=== PATIENT | male | born 1965 | race Caucasian/White ===

== ENCOUNTER 2021-01-25 11:55 | Inpatient (IN) | payer BC ==
[~2021-01-25] VITALS: Ht 180.3 cm; Wt 103.0 kg
--- NOTE | 2021-01-25 12:20 | NUR ---
CAME IN FOR MID CHEST PAIN STARTED YESTERDAY RADIATING TO BACK 6/10 DULL AGGREVATED BY DEEP BREATHING AND COUGHING. PT REPORT HAVING COUGH. PT NOTED DYSPNEIC AND SATTING # 94% ON RA. EKG DONE AT BEDSIDE. PLACED ON MONITOR. IV LINE STARTED AND BLOOD DRAWN. AWAITING MD CALLOWAY
[2021-01-25 12:47] LABS: BASOPHILS # (AUTO) 0.1 /CMM (0.0-0.2); BASOPHILS % (AUTO) 0.3 % (0.0-2.0); HEMATOCRIT 40 % (39-51); HEMOGLOBIN 13.5 g/dL (13.5-17.5); LYMPHOCYTES # (AUTO) 1.7 /CMM (0.8-4.8); MEAN CORPUSCULAR HGB CONC 34 g/dl (31.0-36.0); MEAN CORPUSCULAR VOLUME 94 fL (80-96); MONOCYTES # (AUTO) 0.9 /CMM (0.1-1.30); MONOCYTES % (AUTO) 5.4 % (2.0-12.0); NEUTROPHILS # (AUTO) 14.3 /CMM (1.8-8.9); NEUTROPHILS % (AUTO) 84.3 % (43.0-81.0); PLATELET COUNT (AUTO) 200 /CMM (150-450); RED BLOOD CELL COUNT(AUTO) 4.27 MIL/uL (4.5-6.0)
--- NOTE | 2021-01-25 12:51 | NUR ---
PT NOTED SATTING AT 90% ON RA. PLACED ON 02 VUA NC @ 5LPM SATTING @ 96%. PT VERBALIZED THAT THE O2 HELPS
[2021-01-25 12:57] LABS: CALCIUM, SERUM 9.2 mg/dL (8.5-10.1); CARBON DIOXIDE 24 mmol/L (21-32); CHLORIDE 101 mmol/L (98-107); CREATININE 0.9 mg/dL (0.6-1.3); GLUCOSE 116 mg/dL (74-106); POTASSIUM 3.6 mmol/L (3.5-5.1); SODIUM SERUM 137 mmol/L (136-145); UREA NITROGEN, BLOOD 9 mg/dL (7-18)
[2021-01-25] MEDS ORDERED: IV NS 0.9% 250 ML IV ONE (13:29)
[2021-01-25] MEDS ORDERED: IOHEXOL-350 100 ML VIAL IV ONE (13:29)
--- NOTE | 2021-01-25 13:55 | NUR ---
BACK FROM RADIOLOGY
[2021-01-25] MEDS ORDERED: CEFTRIAXONE 1GM BAG (ER ONLY) 50 ML IV ONE (14:30)
[2021-01-25] MEDS ORDERED: AZITHROMYCIN 500 MG in IV D5W 250 ML IV ONE (14:30)
[2021-01-25] MEDS ORDERED: OMEP20CA15 PO (14:36)
[2021-01-25 14:45] LABS: ALBUMIN 3.8 g/dL (3.4-5.0); BILIRUBIN,DIRECT 0.4 mg/dL (0.0-0.2); BILIRUBIN,TOTAL 0.9 mg/dL (0.2-1.0)
--- NOTE | 2021-01-25 14:49 | NUR ---
PHLEB AT BEDSIDE FOR BLOOD CULTURE DRAW
--- NOTE | 2021-01-25 14:55 | NUR ---
[facility] PAGED
--- NOTE | 2021-01-25 15:18 | NUR ---
COVID SWAB DONE AND SENT TO LAB
[2021-01-25] MEDS ORDERED: ONDANSETRON HCL/PF 4 MG/2 ML VIAL IVP PRN (16:00)
[2021-01-25] MEDS ORDERED: IPRATROPIUM BROMIDE 14 GM INHALER (or 12.9 GM) IH PRN (16:00)
[2021-01-25] MEDS ORDERED: MAG HYDROX/AL HYDROX/SIMETH 30 ML UDC PO PRN (16:00)
[2021-01-25] MEDS ORDERED: MAGNESIUM HYDROXIDE 30 ML UDC PO PRN (16:00)
[2021-01-25] MEDS ORDERED: Z GUARD REMEDY 2 OZ OINT TP PRN (16:00)
[2021-01-25] MEDS ORDERED: ALBUTEROL SULFATE INH 18 GM HFA.AER.AD IH PRN (16:00)
[2021-01-25 17:00] VITALS: BP 143/85
--- NOTE | 2021-01-25 17:23 | NUR ---
REPORT GIVEN TO FLORENCIO TO FOR TALIA
--- NOTE | 2021-01-25 17:30 | NUR ---
TELE/RN NOTES RECEIVED PATIENT AWAKE ALERT ORIENTED X3. ABLE TO MAKE NEEDS KNOWN. A TRANSFER FROM ER. REPORT GIVEN BY MICHELLE MATIAS. PATIENT IS ON OXYGEN AT 5 LPM VIA NASAL CANNULA. ABLE TO WALK FROM [facility] TO BED WITHOUT DIFFICULTY. NO DISTRESS NOTED AT THIS TIME. SKIN IS INTACT. ORIENTED PATIENT TO THE UNIT, COOPERATIVE AND VERBALIZED UNDERSTANDING. SAFETY PRECAUTIONS IN PLACED. BED LOCKED ON LOWEST POSITION, SIDE RAILS UP X2, CALL LIGHT AND TABLE WITHIN REACH. WILL CONTINUE TO MONITOR PATIENT.
--- NOTE | 2021-01-25 17:30 | NUR ---
DR. HAM AT BEDSIDE
--- NOTE | 2021-01-25 17:48 | NUR ---
pt ransported to unit on gurney with emt and rn at bedside w/ acls protocol. nad noted during transport. pt ambulated from gurney to bed w/o assist
[2021-01-25] MEDS ORDERED: IPRATROPIUM NEB FS 0.5 MG/2.5 ML AMPUL.NEB NEB PRN (18:00)
[2021-01-25] MEDS ORDERED: ALBUTEROL FS 2.5 MG/0.5 ML VIAL.NEB NEB PRN (18:00)
[2021-01-25] MEDS ORDERED: ENOXAPARIN SODIUM 40 MG/0.4 ML DISP.SYRIN SQ SCH (18:00)
[2021-01-25] MEDS ORDERED: ENOXAPARIN SODIUM 60 MG/0.6 ML DISP.SYRIN SQ ONE (18:30)
[2021-01-25] MEDS: methylPREDNISolone SOD SUCC 40 MG/ML VIAL IV SCH ×2 (18:38→22:44)
[2021-01-25] MEDS: ACETAMINOPHEN 325 MG TABLET PO PRN (18:39)
--- NOTE | 2021-01-25 19:15 | NUR ---
TELE/RN NOTES PATIENT IN BED AWAKE ALERT ORIENTED X3. ABLE TO MAKE NEEDS KNOWN. ON 5 LPM OF OXYGEN VIA NASAL CANNULA. NO DISTRESS NOTED AT THIS TIME. SKIN IS INTACT. IV ACCESS ON RIGHT AC G#18 PATENT AND INTACT ON SALINE FLUSH. SAFETY PRECAUTIONS IN PLACED. BED LOCKED ON LOWEST POSITION, SIDE RAILS UP X2, CALL LIGHT AND TABLE WITHIN REACH. WILL ENDORSE TO THE NEXT SHIFT FOR CONTINUITY OF CARE..
[2021-01-25 19:31] LABS: ABG BASE EXCESS -3.4 mmol/L; ABG OXYGEN SATURATION 92.1 % (92.0-98.5); ABG PCO2 26.7 mmHg (35.0-45.0); ABG PH 7.466 (7.350-7.450); AaDO2 195.5 mmHg; COHb 1.2 % (0.5-1.5); MetHb 0.1 % (0.0-1.5); O2Hb 90.9 % (94.0-97.0); SITE, ABG Right Radial; VENT MODE, BG N/C 40%
--- NOTE | 2021-01-25 19:45 | NUR ---
HEAT SEAL OPERATOR OPENING NOTE PATIENT A/OX4; ABLE TO MAKE NEEDS KNOWN. O2 ON 5L VIA N/C WITH SOB AND SATTING AT 96%. EXTERNAL FABRICATOR ASSEMBLER MET[employer]ODUCTS READS NSR AT 87. TEMP AT 99.0. RAC #18G S/L; PATENT AND INTACT. SAFETY MEASURES IN PLACE: BED IN LOWEST LOCKED POSITION; SIDE RAILS UPX2, CALL LIGHT WITHIN EASY REACH, BED ALARMS ON. WILL CONTINUE PLAN OF CARE.
--- NOTE | 2021-01-25 19:47 | NUR ---
ASPHALT PAVING SUPERINTENDENT NOTE - ABG ABG RESULT WITH CO2 - 26.7. O2 - 59.0 PH - 7.466 HCO3 - 18.8 RT INCREASE O2 TO 8L VIA SIMPLE MASK. NOTIFIED DR. CORDOVA AND AWAITING FOR FURTHER ORDERS
--- NOTE | 2021-01-25 19:51 | NUR ---
PRELIMINARY FINDINGS SHOWED POSITIVE FOR DVT AT RT POP V. INFORMED FLORENCIO SERNA OF RESULTS.
--- NOTE | 2021-01-25 19:51 | NUR ---
PACKING AND FINAL ASSEMBLY SUPERVISOR NOTE - DVT US DUPLEX VENOUS TO EXT. BLE DONE. PATIENT POSITIVE FOR DVT ON RIGHT POPLITEAL VEIN. NOTIFIED DR. CORDOVA AND AWAITING FOR FURTHER ORDERS.
[2021-01-25 20:04] VITALS: BP 128/78
[2021-01-26 00:20] VITALS: BP 122/79
[2021-01-26] MEDS ORDERED: SODIUM BICARBONATE SYR 50 MEQ/50 ML DISP.SYRIN ONE (01:55)
[2021-01-26] MEDS: Sodium Bicarbonate 50 MEQ in IV D5 / 0.2% NACL 1,000 ML IV PRN ×2 (02:23→22:29)
--- NOTE | 2021-01-26 02:45 | NUR ---
RN NOTES: DR JOSEPH ORDERED SODIUM BICARB 50 MEQ INCORPORATE AT D5 1/2 NSS 1000ML INFUSE AT 45ML/HR GIVEN AT 0235
[2021-01-26 04:38] VITALS: BP 126/75
[2021-01-26 04:41] VITALS: BP 126/75
[2021-01-26] MEDS: methylPREDNISolone SOD SUCC 40 MG/ML VIAL IV SCH ×3 (05:42→20:05)
[2021-01-26 06:16] LABS: BASOPHILS % (AUTO) 0.2 % (0.0-2.0); HEMATOCRIT 37 % (39-51); HEMOGLOBIN 12.6 g/dL (13.5-17.5); LYMPHOCYTES % (AUTO) 5.5 % (20.0-44.0); MEAN CORPUSCULAR HGB CONC 34 g/dl (31.0-36.0); MEAN CORPUSCULAR VOLUME 94 fL (80-96); MONOCYTES # (AUTO) 0.6 /CMM (0.1-1.30); MONOCYTES % (AUTO) 3.3 % (2.0-12.0); NEUTROPHILS # (AUTO) 16.7 /CMM (1.8-8.9); PLATELET COUNT (AUTO) 184 /CMM (150-450); RED BLOOD CELL COUNT(AUTO) 3.94 MIL/uL (4.5-6.0); WHITE BLOOD COUNT (AUTO) 18.4 K/uL (4.3-11.0)
[2021-01-26] MEDS ORDERED: Sodium Bicarbonate 50 MEQ in IV D5 / 0.2% NACL 1,000 ML IV SCH (06:36)
[2021-01-26 07:16] LABS: ALBUMIN 3.2 g/dL (3.4-5.0); BILIRUBIN,TOTAL 0.6 mg/dL (0.2-1.0); CALCIUM, SERUM 9.4 mg/dL (8.5-10.1); CREATININE 0.8 mg/dL (0.6-1.3); MAGNESIUM 1.7 mg/dL (1.8-2.4); PHOSPHORUS 2.2 mg/dL (2.5-4.9); POTASSIUM 4.3 mmol/L (3.5-5.1); TOTAL PROTEIN, SERUM 7.6 g/dL (6.4-8.2)
[2021-01-26 07:19] LABS: THYROID STIMULATING HORMONE 0.736 uIU/mL (0.358-3.74)
--- NOTE | 2021-01-26 07:30 | NUR ---
THIRD GRADE TEACHER NOTES PT IN BED, AWAKE, ALERT AND ORIENTED, DENIES PAIN, NOT IN DISTRESS, ON 8L OF O2 VIA MASK, O2 SAT OF 94%, CALL LIGHT WITHIN REACH, IV FLUIDS INFUSING WELL, NEEDS ATTENDED.
--- NOTE | 2021-01-26 07:35 | NUR ---
POWER GENERATING PLANT OPERATOR OPENING NOTES: PATIENT AWAKE IN BED, BED IN LOW POSITION , NO SOB NOTED,NO COMPLAIN OF PAIN AND DISCOMFORT, ON TELE MONITORING WITH READING OF PVC WITH HR-71, ON O2 SAT MONITORING , ALL NEEDS MET KEPT CLEAN AND ENDORSE TO INCOMING SHIFT.
[2021-01-26 08:00] VITALS: BP 117/78
[2021-01-26] MEDS: ENOXAPARIN SODIUM 100 MG/ML DISP.SYRIN SQ SCH ×2 (08:06→20:08)
[2021-01-26] MEDS: OSELTAMIVIR PHOSPHATE 75 MG CAPSULE PO SCH ×2 (09:47→17:11)
[2021-01-26] MEDS ORDERED: K PHOS NEUTRAL 250 MG TABLET PO ONE (10:30)
--- NOTE | 2021-01-26 10:30 | NUR ---
RECEIVED PATIENT FROM . PATIENT STABLE. WILL CONTINUE TO MONITOR.
--- NOTE | 2021-01-26 10:53 | NUR ---
INSIDE SALES TRAINER NOTES PT SEEN BY DR. STANTON, PLAN OF CARE DISCUSSED WITH PT AND AT BEDSIDE, PT ALSO SEEN BY DR. TSE, ORDERED TO TRANSFER PT TO 1ST FLOOR FOR ISOLATION PRECAUTIONS, OBTAINED SWABS FOR COVID PCR AND RAPID INFLUENZA, SPECIMENS SENT TO LAB, RECEIVED BY ZULEIKA, TRANSFERED PT TO ROOM 110 VIA ACLS PROTOCOL, PORTABLE O2 AND BELONGINGS, REPORT GIVEN TO KARUNA RN FOR CONTINUITY OF CARE.
[2021-01-26] MEDS: Magnesium 1GM/D5W 100ML PREMIX 100 ML IV SCH ×2 (11:02→12:31)
[2021-01-26] MEDS: CEFTRIAXONE 2 G in IV D5W 100 ML IV SCH (16:59)
[2021-01-26] MEDS: AZITHROMYCIN 500 MG in IV D5W 250 ML IV SCH (17:44)
--- NOTE | 2021-01-26 19:26 | NUR ---
VERIFICATION REP CLOSING NOTE PATIENT CURRENTLY LYING IN BED, AWAKE, A/OX4. ON 8L O2 VIA MASK WITH SOB, SATURATION AT 97%. EXTERNAL BONE CRUSHER READS NSR AT 87. IV ACCESS TO RIGHT AC #18G S/L - PATENT AND INTACT. PATIENT IS AMBULATORY. SAFETY MEASURES IN PLACE. CALL LIGHT WITHIN REACH. REPORT GIVEN TO POT LINING SUPERVISOR NURSE FOR TALIA.
--- NOTE | 2021-01-26 19:50 | NUR ---
RN OPENING NOTE REC'D PT IN BED, A/O X4 PREFERS TO GO BY OCTAVIANO, MIDDLE NAME. PT IS ON 8L OF O2 VIA SIMPLE MASK NO SOB OR RESP DISTRESS NOTED. O2 SAT 95%. PT IS NSR 87, PT BASELINE. PT IS AMBULATORY WITH STEADY GAIT. IV SITE RIGHT AC FLUSHED ASEPTICALLY. IVF D5 1/4 NS WITH SODIUM BICARB RUNNING AT 45ML/HR ORDERED. NO S/S OF INFILTRATION NOTED. PT DENIES PAIN. ISOLATION PRECAUTIONS IN PLACE FOR PCR PENDING. SIDE RAILS UP X2 BED LOCKED IN LOWEST POSITION WITH BED ALARM NEWS INTERN LIGHT WITHIN REACH. WILL CONT TO MONITOR CLOSELY THROUGHOUT SHIFT.
[2021-01-26 20:00] VITALS: BP 121/75
[2021-01-27] VITALS: BP 127/81
[2021-01-27 04:00] VITALS: BP 126/79
[2021-01-27] MEDS: methylPREDNISolone SOD SUCC 40 MG/ML VIAL IV SCH ×3 (05:11→21:59)
--- NOTE | 2021-01-27 06:52 | NUR ---
RN CLOSING NOTE NO SIGNIFICANT CHANGES IN PT CONDITION PT REMAINS ON 8L OF O2 VIA SIMPLE MASK. NO SOB OR RESP DISTRESS NOTED. O2 SAT 95%. PT IS NSR IWTH HR 79. ALL NEEDS ATTENDED. ALL DUE MEDICATIONS GIVEN. PT DENIES PAIN. SAFETY MEASURES IN PLACE. ISOLATION PRECAUTIONS IN PLACE FOR PCR PENDING. SIDE RAILS UP X2 BED LOCKED IN LOWEST POSITION WITH BED ALARM SALESPERSON NECKTIES LIGHT WITHIN REACH. WILL ENDORSE TO DAY SHIFT NURSE FOR CONTINUATION OF CARE.
[2021-01-27 07:24] LABS: CALCIUM, SERUM 9.1 mg/dL (8.5-10.1); CREATININE 0.9 mg/dL (0.6-1.3); MAGNESIUM 2.2 mg/dL (1.8-2.4); PHOSPHORUS 2.9 mg/dL (2.5-4.9); POTASSIUM 3.8 mmol/L (3.5-5.1)
--- NOTE | 2021-01-27 07:55 | NUR ---
MYCOLOGIST OPENING NOTE PATIENT IS IN BED RESTING, PATIENT IS IN NO ACUTE DISTRESS, PATIENT IS ON NON REBREATHER MASK ON 8L, SATURATING 94%. PATIENT IS ON TELE MONITOR READING SINUS RHYTHM 80s. SAFETY PRECAUTIONS ARE ON BED IS LOCKED IN THE LOWEST POSITION, WITH SIDE RAILS UP, CALL LIGHT WITHIN REACH, WILL CONTINUE TO MONITOR CLOSELY.
[2021-01-27 08:00] VITALS: BP 129/76
[2021-01-27] MEDS: OSELTAMIVIR PHOSPHATE 75 MG CAPSULE PO SCH (08:29)
[2021-01-27] MEDS: ENOXAPARIN SODIUM 100 MG/ML DISP.SYRIN SQ SCH ×2 (08:35→20:24)
[2021-01-27 12:00] VITALS: BP 121/77
[2021-01-27 16:00] VITALS: BP 121/77
[2021-01-27] MEDS: CEFTRIAXONE 2 G in IV D5W 100 ML IV SCH (16:12)
[2021-01-27] MEDS: AZITHROMYCIN 500 MG in IV D5W 250 ML IV SCH (16:51)
--- NOTE | 2021-01-27 18:38 | NUR ---
BLANKET INSPECTOR CLOSING NOTE PATIENT IS IN BED RESTING, PATIENT IS IN NO ACUTE DISTRESS, PATIENT IS ON NASAL CANNULA ON 5L, SATURATING 94%. PATIENT IS ON TELE MONITOR READING SINUS RHYTHM 80s. SAFETY PRECAUTIONS ARE ON BED IS LOCKED IN THE LOWEST POSITION, WITH SIDE RAILS UP, CALL LIGHT WITHIN REACH, ENDORSE PATIENT TO NIGHT NURSE.
[2021-01-27 20:00] VITALS: BP 126/82
--- NOTE | 2021-01-27 20:00 | NUR ---
telegraph and teletype operator notes PATIENT A/OX4; ABLE TO MAKE NEEDS KNOWN. O2 ON 5L VIA N/C ON TELE SR - 77 ,NO SOB NO DISTRESS NOTED AND SATING AT 96%. IV OF RAC #18G WITH D5 1/4 NS SODIUM BICARB AT 45CC/HR INFUSING WELL . SAFETY MEASURES IN PLACE: BED IN LOWEST LOCKED POSITION; SIDE RAILS UPX2, CALL LIGHT WITHIN EASY REACH, BED ALARMS ON. WILL CONTINUE PLAN OF CARE.
[2021-01-27] MEDS: ACETAMINOPHEN 325 MG TABLET PO PRN (20:11)
[2021-01-28] VITALS: BP 142/82
[2021-01-28] MEDS: Sodium Bicarbonate 50 MEQ in IV D5 / 0.2% NACL 1,000 ML IV PRN (00:06)
[2021-01-28 04:00] VITALS: BP 109/82
--- NOTE | 2021-01-28 06:00 | NUR ---
telephone cleaner notes spoke to marva from the lab blood cx result 1 bottle out of four , gram positive cocci in cluster md law made aware pts currently on iv antibiotic .will erdorsed to rn day shift for continuity of care .
[2021-01-28] MEDS: methylPREDNISolone SOD SUCC 40 MG/ML VIAL IV SCH ×2 (06:05→13:00)
--- NOTE | 2021-01-28 06:38 | NUR ---
MOBILITY ARCHITECT NOTES PT IN BED, AWAKE, ALERT AND ORIENTED, DENIES PAIN, NOT IN DISTRESS, ON 5L OF O2 VIA MASK, O2 SAT OF 96-97%, CALL LIGHT WITHIN REACH, IV FLUIDS D5 1/4 NS NA BICARB AT 45CC/HR, AT INFUSING WELL, NEEDS ATTENDED TOO WILL ENDORSE TO RN DAY SHIFT FOR CONTINUITY OF CARE
--- NOTE | 2021-01-28 07:30 | NUR ---
RN OPENING NOTES Patient is alert and oriented x 4. Breathing even and unlabored. On 5 LITERS 02 VIA N/C saturating 98%. No c/o pain or discomfort. Vitals WNL. Bed is in lowest and locked position. Will continue to monitor. Call light with in reach.
[2021-01-28 08:00] VITALS: BP 132/78
[2021-01-28] MEDS: ENOXAPARIN SODIUM 100 MG/ML DISP.SYRIN SQ SCH (08:11)
[2021-01-28] MEDS: VANCOMYCIN 1.25 GM in IV D5W 250 ML IV SCH ×2 (10:51→22:57)
[2021-01-28 12:00] VITALS: BP_SYST 120; BP_SYST 132; BP_DIAS 76; BP_DIAS 78
--- NOTE | 2021-01-28 13:00 | NUR ---
Patient's 02 lowered to 3 liters and monitored and titrated to 2 liters with 02 saturation of 95% Per Dr Painter's orders. tolerated well.
--- NOTE | 2021-01-28 14:00 | NUR ---
Patient on room air saturating well with 02 saturation of 97%.
[2021-01-28 16:00] VITALS: BP 123/80
[2021-01-28] MEDS: CEFTRIAXONE 2 G in IV D5W 100 ML IV SCH (16:10)
[2021-01-28] MEDS: AZITHROMYCIN 500 MG in IV D5W 250 ML IV SCH (17:37)
[2021-01-28] MEDS: RIVAROXABAN 15 MG TABLET PO SCH (17:47)
--- NOTE | 2021-01-28 19:20 | NUR ---
RN CLOSING NOTES Patient is alert and oriented x 4. Breathing even and unlabored. On room air saturating 95%. No c/o pain or discomfort. Vitals WNL. Bed is in lowest and locked position. Will continue to monitor. Call light with in reach.Endorsed to next shift for TALIA.
[2021-01-28 20:00] VITALS: BP 123/88
--- NOTE | 2021-01-28 20:30 | NUR ---
RN OPENING NOTE RECEIVED PT AWAKE IN BED. A/O X4. PT IS STABLE ON ROOM AIR. NO SOB OR S/S OF RESPIRATORY DISTRESS NOTED. PT HAS NO C/O PAIN OR DISCOMFORT AT THIS TIME. IV ACCESS IN RIGHT AC #18 SALINE-LOCKED, INTACT AND PATENT. SAFETY MEASURES MAINTAINED. BED IN LOWEST LOCKED POSITION, HOB ELEVATED, SIDE RAILS UP X2. CALL LIGHT AND TABLE WITHIN REACH. WILL CONTINUE WITH PLAN OF CARE.
[2021-01-29] VITALS: BP 119/75
[2021-01-29 04:00] VITALS: BP 119/84
--- NOTE | 2021-01-29 06:20 | NUR ---
RN CLOSING NOTE PT IS AWAKE IN BED. A/O X4. PT IS STABLE ON ROOM AIR. NO SOB OR S/S OF RESPIRATORY DISTRESS NOTED. PT IS ON EXTERNAL SHOWCASE MAKER READING SR 75. PT HAS NO C/O PAIN OR DISCOMFORT AT THIS TIME. IV ACCESS INTACT, PATENT, AND FLUSHING WELL. ALL NEEDS HAVE BEEN MET. SAFETY PRECAUTIONS MAINTAINED AT ALL TIMES. BED IN LOWEST LOCKED POSITION, HOB ELEVATED, SIDE RAILS UP X2. CALL LIGHT AND TABLE WITHIN REACH. WILL ENDORSE TO ONCOMING NURSE FOR TALIA.
[2021-01-29 07:06] LABS: CALCIUM, SERUM 8.6 mg/dL (8.5-10.1); CREATININE 0.9 mg/dL (0.6-1.3); POTASSIUM 4.1 mmol/L (3.5-5.1)
[2021-01-29 07:32] LABS: BASOPHILS % (AUTO) 0.1 % (0.0-2.0); EOSINOPHILS % (AUTO) 0.1 % (0.0-6.0); HEMATOCRIT 37 % (39-51); HEMOGLOBIN 12.3 g/dL (13.5-17.5); LYMPHOCYTES # (AUTO) 3.5 K/uL (0.8-4.8); LYMPHOCYTES % (AUTO) 21.2 % (20.0-44.0); MEAN CORPUSCULAR HGB CONC 33 g/dl (31.0-36.0); MEAN CORPUSCULAR VOLUME 95 fL (80-96); MONOCYTES # (AUTO) 0.9 K/uL (0.1-1.30); MONOCYTES % (AUTO) 5.4 % (2.0-12.0); NEUTROPHILS # (AUTO) 12.2 K/uL (1.8-8.9); NEUTROPHILS % (AUTO) 73.2 % (43.0-81.0); PLATELET COUNT (AUTO) 253 K/uL (150-450); RED BLOOD CELL COUNT(AUTO) 3.88 MIL/uL (4.5-6.0); WHITE BLOOD COUNT (AUTO) 16.6 K/uL (4.3-11.0)
[2021-01-29 08:00] VITALS: BP 122/72
--- NOTE | 2021-01-29 08:00 | NUR ---
RN note: Pt received alert awake oriented X 4. On RA, no breathing distress noted. Denies pain & discomfort. SR on tele monitor. Safety measures observed. IV site intact, clean & dry, SL. Encourage pt to call for assistance. Call light within reach. Continue to monitor.
[2021-01-29] MEDS: RIVAROXABAN 15 MG TABLET PO SCH ×2 (09:00→17:08)
[2021-01-29] MEDS: methylPREDNISolone SOD SUCC 40 MG/ML VIAL IV SCH (09:01)
[2021-01-29 09:58] LABS: LYMPHOCYTES % (MANUAL) 14 % (16-48); MONOCYTES % (MANUAL) 6 % (0-11.0); NEUTROPHILS % (MANUAL) 80 (42-76)
[2021-01-29] MEDS: VANCOMYCIN 1.25 GM in IV D5W 250 ML IV SCH (11:44)
[2021-01-29 12:00] VITALS: BP 123/84
[2021-01-29 16:00] VITALS: BP 125/77
[2021-01-29] MEDS: CEFTRIAXONE 2 G in IV D5W 100 ML IV SCH (16:50)
[2021-01-29] MEDS ORDERED: AZITHROMYCIN 250 MG TABLET PO SCH (17:00)
--- NOTE | 2021-01-29 19:43 | NUR ---
INFANT BABYSITTER: CONTINUITY OF CARE Patient in bed, awake. Sinus rhythm in the Tele monitor HR 72. On room air, in no acute distress. No c/o chest pain. Call light with in reach. Spouse at bedside, supportive with care.
[2021-01-29 20:00] VITALS: BP 132/84
--- NOTE | 2021-01-29 23:52 | NUR ---
PIGMENT PUMPER: VANCOMYCIN TROUGH CANCELLED Vancomycin trough not needed at this time as IV vancomycin order discontinued.
[2021-01-30 00:40] VITALS: BP 130/90
[2021-01-30 04:00] VITALS: BP 127/90
--- NOTE | 2021-01-30 06:07 | NUR ---
MOLDED GOODS SPOT PICKER: END OF SHIFT REPORT Patient A/O x4. Sinus rhythm in the Tele monitor HR 64. No c/o chest pain. Tolerating room air, ambulates independently. On IV Rocephin, afebrile. Plan for dc home with PO Doxycycline and PO Levaquin. Will endorse to oncoming RN.
--- NOTE | 2021-01-30 07:05 | NUR ---
RN OPENING NOTE RECEIVED PATIENT IN BED. A/O X4. ON ROOM AIR, TOLERATING WELL. NO SOB NOTED. IN NO APPARENT DISTRESS. TELE READING SHOWS SR 65. IV ACCESS ON R FA #20 G, INTACT AND PATENT. ABLE TO MAKE NEEDS KNOWN. SAFETY MEASURES MAINTAINED. BED IN LOWEST POSITION, BRAKES LOCKED. SIDE RAILS UP X2. CALL LIGHT WITHIN REACH. WILL CONTINUE PLAN OF CARE.
--- NOTE | 2021-01-30 07:16 | NUR ---
follow up blood final result of blood culture send 01/26,per lab will be available later today or tommorow.
[2021-01-30 07:25] LABS: CALCIUM, SERUM 8.2 mg/dL (8.5-10.1); CREATININE 0.9 mg/dL (0.6-1.3); POTASSIUM 4.2 mmol/L (3.5-5.1)
[2021-01-30 08:00] VITALS: BP 127/83
[2021-01-30] MEDS: RIVAROXABAN 15 MG TABLET PO SCH (08:40)
[2021-01-30] MEDS: methylPREDNISolone SOD SUCC 40 MG/ML VIAL IV SCH (08:40)
--- NOTE | 2021-01-30 10:30 | NUR ---
RN NOTE: DISCHARGE PT DISCHARGED. HEALTH TEACHING AND DISCHARGE INSTRUCTIONS GIVEN. PT VERBALIZED UNDERSTANDING. ALL FORMS SIGNED. REMOVED ID [id number] AND IV ACCESS. PT WILL BE PICKED UP BY RIGO. BP 127/83 MO 66 T 98.2 SA02 98%
== END 2021-01-30 11:40 | disposition home or self-care (01) | DRG 193 ==
LOC: ER 11:55 → TELE 17:20 → TELE1 01-26 10:41
PROVIDERS: ADMIT Internal Medicine; ATTEND Internal Medicine
DX: J15.9 Unspecified bacterial pneumonia (principal); J96.01 Acute respiratory failure with hypoxia; I26.99 Other pulmonary embolism without acute cor pulmonale; J44.0 Chronic obstructive pulmonary disease with (acute) lower respiratory infection; J44.1 Chronic obstructive pulmonary disease with (acute) exacerbation; I82.431 Acute embolism and thrombosis of right popliteal vein; J90 Pleural effusion, not elsewhere classified; Z20.822 Contact with and (suspected) exposure to COVID-19; Z86.711 Personal history of pulmonary embolism; E66.9 Obesity, unspecified; Z79.899 Other long term (current) drug therapy; G47.33 Obstructive sleep apnea (adult) (pediatric); Z72.0 Tobacco use; Z68.31 Body mass index [BMI] 31.0-31.9, adult; Z79.01 Long term (current) use of anticoagulants
CPT/HCPCS: 36415; 36600; 71045-TC; 80048-TC; 80053-TC; 80061-TC; 80076-TC; 83605-TC; 83735-TC; 84100-TC; 84443-TC; 84484-TC; 85025-TC; 85378-TC; 85730-TC; 86140-TC; 87040-TC; 87081-TC; 93307-TC; 93970-TC; C9803; G0378; J0456; J0696; J1650; J2920; J3370; J3475; J3490; J7050; J7060; Q9967; U0003